=== PATIENT | male | born 1955 | race African-American/Black ===

== ENCOUNTER 2016-07-01 17:12 | Inpatient (IN) ==
[2016-07-01 18:05] LABS: MANUAL DIFF NEEDED? NO
--- NOTE | 2016-07-01 18:12 | Diag Imaging Result Document ---
PROCEDURE NAME: CHEST-PORTABLE - 07/01/2016 PORTABLE CHEST: There is a calcified node on the right. Considering differences in projection and inspiration, there has been no significant change from 02/09/2015. IMPRESSION: No evidence of acute disease.
[2016-07-01 18:13] LABS: BASO% 0.8 % (0.0-0.8); EOS# 0.06 X1000 (0.0-0.7); EOS% 1.6 % (0.0-10.0); HEMATOCRIT 33.1 % (42.0-52.0); HEMOGLOBIN 11.2 g/dL (14.0-18.0); IMM GRAN# 0.03 X1000 (0.0-0.04); IMM GRAN% 0.8 % (0.0-0.5); LYMPH# 1.12 X1000 (1.2-3.4); LYMPH% 30.7 % (20.5-51.1); MCH 30.3 PG (27-31); MCHC 33.8 g/dL (33-37); MCV 89.5 FL (81-99); MONO# 0.52 X1000 (0.11-0.59); MONO% 14.2 % (1.7-9.3); MPV 9.4 FL (7.4-10.4); NEUT% 51.9 % (42.2-75.2); PLT 223 X1000 (130-400)
[2016-07-01 18:19] LABS: INR 1.02; PROTIME 10.7 Seconds (9.2-11.7); PTT 26.1 Seconds (22.0-36.0)
[2016-07-01 18:31] LABS: AGAP 10; ALBUMIN 3.9 g/dL (3.5-5.0); ALKALINE PHOSPHATASE 72 U/L (32-122); BUN 13 mg/dL (8-22); CALCIUM 9.3 mg/dL (8.8-10.2); CHLORIDE 105 mmol/L (98-107); CK PROFILE 141 U/L (24-204); COSMO 284; GOT 16 U/L (10-34); GPT 10 U/L (10-44); POTASSIUM 4.2 mmol/L (3.5-5.1); SODIUM 143 mmol/L (136-145); TCO2 28 mmol/L (25-35); TOTAL BILIRUBIN 0.51 mg/dL (0.20-1.00); TOTAL PROTEIN 6.5 g/dL (6.3-8.3)
[2016-07-01 18:54] LABS: URINE MICRO REVIEW NEEDED? NO; URINE SOURCE CATH
[2016-07-01 19:09] LABS: BILIRUBIN URINE NEGATIVE (NEGATIVE); BLOOD URINE TRACE (NEGATIVE); COLOR YELLOW; GLUCOSE URINE NEGATIVE (NEGATIVE); LEUKOCYTES URINE MODERATE (NEGATIVE); NITRITE URINE NEGATIVE (NEGATIVE); PROTEIN URINE TRACE mg/dL (NEGATIVE); SP GRAVITY URINE 1.023; TURBIDITY URINE CLEAR (CLEAR); UROBILINOGEN URINE 4 mg/dL (NORMAL)
[2016-07-01 19:11] LABS: UR EPITHELIAL CELLS <10 /HPF (<10); URINE BACTERIA 4+ /HPF; URINE CULTURE NEEDED? YES; URINE WBC TNTC /HPF (<10)
[2016-07-01 19:20] LABS: UR AMPHETAMINES QUAL NONE DETECTED (NONE DETECT); UR BARBITUATES QUAL NONE DETECTED (NONE DETECT); UR BENZODIAZEPIN QUAL NONE DETECTED (NONE DETECT); UR CANNABINOIDS QUAL NONE DETECTED (NONE DETECT); UR COCAINE QUAL NONE DETECTED (NONE DETECT); UR METHADONE QUAL NONE DETECTED (NONE DETECT); UR OPIATES QUAL NONE DETECTED (NONE DETECT); UR OXYCODONE QUAL NONE DETECTED (NONE DETECT); UR PCP QUAL NONE DETECTED (NONE DETECT)
[2016-07-01] MEDS ORDERED: ROCEPHIN 1 GM/NS 1 GM/50 ML IVPB IV ONE (19:50)
--- NOTE | 2016-07-01 22:58 | HISTORY AND PHYSICAL ---
PRIMARY CARE PHYSICIAN: None. CHIEF COMPLAINT: Confusion. HISTORY OF PRESENTING ILLNESS: A 61-year-old male who resides at [facility], with a history of CVA, with right-sided residual weakness, hypertension, diabetes mellitus type 2, and dementia, was brought to the emergency department due to patient having more confusion than his baseline. The patient does have, as discussed, dementia, and apparently his confusion is more worse than usual. At the time of my examination, he was not oriented to person, time, or place, and not much history could be obtained from him. The remainder of the history is obtained from his previous records. However, patient was able to deny he had any headache, fever, chills, chest pain, shortness of breath, hemoptysis, or any weight changes. He states that he is not sure why he is at the hospital. PAST MEDICAL HISTORY: Includes CVA, hypertension, diabetes mellitus type 2, chronic anemia, depression, dementia, chronic kidney disease. PAST SURGICAL HISTORY: None. ALLERGIES: No known drug allergies. CURRENT MEDICATIONS: As listed in the MAR. SOCIAL HISTORY: A 20+ pack year history of smoking. He denies any history of alcohol or illicit drug use. FAMILY HISTORY: No history of coronary artery disease. REVIEW OF SYSTEMS: A 12-point review of systems is as in HPI. Other systems are negative. PHYSICAL EXAMINATION: GENERAL: Cooperative, friendly male. He is without any respiratory distress. VITAL SIGNS: Temperature 98.1 degrees, pulse 78, respirations 16, blood pressure 145/95. He is saturating 100%. HEENT: Atraumatic, normocephalic. Extraocular movements intact. PERRLA. NECK: Supple. CHEST: Clear to auscultation. CARDIOVASCULAR: Regular rate and rhythm. ABDOMEN: Soft, nontender. Positive bowel sounds. EXTREMITIES: No edema. NEUROLOGIC: Speech is intact. Strength is 5/5 in all extremities. GENITOURINARY: No bladder distention. SKIN: Warm. Good turgor. LABORATORIES AND STUDIES: UA shows moderate leukocytes and +4 bacteria. WBC 3.65, hemoglobin 11.2, hematocrit 33.1 platelets 223,000. Sodium 143, potassium 4.2, chloride 105, CO2 28, BUN is 13, creatinine is 1.0, glucose is 82. ASSESSMENT: This is a 61-year-old male with a history of cerebrovascular accident, hypertension, diabetes mellitus type 2, and dementia, who was brought to the emergency department due to worsening confusion. He was found to have a urinary tract infection. He will need hospitalization for further management. 1. Altered mental status, multifactorial. 2. Urinary tract infection. 3. Dementia. 4. Hypertension. 5. Diabetes mellitus, type 2. PLAN: 1. We will admit the patient to the medical floor with telemetry. 2. We will continue with neurologic checks. 3. Check urine cultures. Start patient on IV antibiotics. 4. Will monitor blood pressure, resume antihypertensive agent. 5. Will put patient on sliding scale insulin regimen and monitor blood glucose. 6. Will put patient on DVT prophylaxis with SCDs. 7. Will continue to follow and reassess. cc: Aayush Hernandez MD
[2016-07-02] MEDS: NS 1,000 ML IV SCH ×2 (00:10→16:33)
[2016-07-02] MEDS ORDERED: APRESOLINE PO ONE (01:23)
--- NOTE | 2016-07-02 04:19 | ED EKG INTERP ---
This chart was entered by Felipa Davis Scribe, acting as scribe for Jayson Antonio MD. EKG Interpretation - EKG Time of EKG reading by physician:: 21:29 EKG Read and Signed by:: Jayson Antonio EKG Interpretation (*Must complete 3 of following elements*): Abnormal Rate: 73 Rhythm: NSR ST Wave: non-specific ST changes Comments: prolonged QT This chart was documented by the indicated scribe, (Felipa Davis Scribe) and accurately reflects the services I performed and decisions made by me, Jayson Antonio MD, as attested by the provider's signature.
--- NOTE | 2016-07-02 04:20 | PROVIDER DOCUMENTATION ---
This chart was entered by Felipa Davis Scribe, acting as scribe for Jayson Antonio MD. HPI-Neurological Disorder - General Chief Complaint: Altered Mental Status Stated Complaint: ams Time Seen by Provider: 07/01/16 17:14 Source: patient Allergies/Adverse Reactions: Patient Allergies Allergy/AdvReac Type Severity Reaction Status Date / Time No Known Allergies Allergy Verified 02/10/16 12:36 Home Medications: Home Medication List Medication Instructions Recorded Confirmed Last Taken Type Tamsulosin [Flomax] 0.8 mg PO QHS #60 capsule 07/23/15 07/01/16 10/31/15 08:00 Rx Citalopram [Celexa] 20 mg PO DAILY 10/31/15 07/01/16 10/31/15 08:00 History Hydralazine [Apresoline] 50 mg PO Q8HR #60 tablet 01/08/16 07/01/16 Unknown Rx Amlodipine [Norvasc] 5 mg PO DAILY 02/10/16 07/01/16 Unknown History Collagenase Clostridium Oint 1 applicatn TOP DAILY #0 oint 02/19/16 07/01/16 Unknown Rx [Santyl Oint] - History of Present Illness-Neuro Nature of Presenting Problem: 61 year old M presents to the ED via EMS for being found unresponsive. Per EMS, [facility] staff found pt outside in his wheelchair unresponsive. On arrival to ED, PT was alert and able to follow simple commands. Severity: reports: mild Onset/Duration: reports: just prior to arrival Timing: reports: improving Context: reports: found unresponsive by [facility] staff Character of Altered Mental Status: reports: unresponsive Any recent trauma/injury?: reports: none Cognitive Baseline: alert, oriented x3 Similar Symptoms Previously?: No Recently seen or treated by another doctor?: No Review of Systems - Adult - REVIEW OF SYSTEMS - ADULT Constitutional: reports: no symptoms reported Eyes: reports: no symptoms reported Ears, Nose, Mouth & Throat: reports: no symptoms reported Cardiovascular: denies: chest pain, palpitations Respiratory: denies: cough, shortness of breath Gastrointestinal: denies: nausea, vomiting Genitourinary: reports: no symptoms reported Musculoskeletal: reports: no symptoms reported Integumentary: reports: no symptoms reported Neurological: denies: seizure, slurred speech Psychiatric: reports: no symptoms reported Endocrine: reports: no symptoms reported Hematologic/Lymphatic: reports: no symptoms reported Allergic/Immunologic: reports: no symptoms reported All Other Systems: Reviewed and Negative Past History - Adult - PAST MEDICAL HISTORY-ADULT Review of Records: reports: Nursing Assessment Review, Medications Reviewed Major Childhood Illnesses: reports: denies history Cardiovascular: reports: HTN Respiratory: reports: denies history Gastrointestinal: reports: denies history Obstetrical/Gynecological: reports: denies history Genitourinary: reports: denies history Musculoskeletal: reports: denies history Neurological: reports: denies history Endocrine/Immune: reports: anemia Other Conditions: reports: denies history - PRIOR SURGERIES/PROCEDURES Surgical/Procedure History: reports: orthopedic (extremity) (hip sx) - IMMUNIZATION STATUS Childhood Immunizations: See Nurse Assessment Flu Vaccine: See Nurse Assessment - FAMILY HISTORY Family History: reviewed, not pertinent - SOCIAL HISTORY Smoking: cigarettes Provider spent 3-5 mins advising pt. on dangers of tobacco.: Discussed manners to quit use, and f/u contacts for add'l counseling. 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 as tested, no motor/sensory deficits Integumentary: normal color, normal turgor, warm/dry Psych/Mental Status: oriented x 3 Progress - PLAN OF CARE/RESULTS Progress/Plan/Lab Results: Laboratory Results - last 24 hr 07/01/16 07/01/16 07/01/16 17:50 17:50 17:50 WBC 3.65 L RBC 3.70 L Hgb 11.2 L Hct 33.1 L MCV 89.5 MCH 30.3 MCHC 33.8 RDW Std Deviation 14.9 H Plt Count 223 MPV 9.4 Immature Gran % (Auto) 0.8 H Neut % (Auto) 51.9 Lymph % (Auto) 30.7 [place] % (Auto) 14.2 H Eos % (Auto) 1.6 Baso % (Auto) 0.8 Immature Gran # (Auto) 0.03 Neut # (Auto) 1.89 Lymph # (Auto) 1.12 L [place] # (Auto) 0.52 Eos # (Auto) 0.06 Baso # (Auto) 0.03 PT INR PTT (Actin FS) Sodium 143 Potassium 4.2 Chloride 105 Carbon Dioxide 28 Anion Gap 10 BUN 13 Creatinine 1.0 Estimated GFR/1.73 m2 > 60 BUN/Creatinine Ratio 13 Glucose 82 POC Glucose Calculated Osmolality 284 Calcium 9.3 Total Bilirubin 0.51 AST 16 ALT 10 Alkaline Phosphatase 72 Creatine Kinase 141 Troponin T Total Protein 6.5 Albumin 3.9 Globulin 2.6 Albumin/Globulin Ratio 1.5 Plasma Lactate Urine Source Urine Color Urine Turbidity Urine pH Ur Specific Willard Urine Protein Ur Glucose (Stick) Ur Ketones (Stick) Urine Blood Urine Nitrite Urine Bilirubin Urobilinogen Dipstick Urine Leukocytes Urine WBC (Auto) Urine RBC (Auto) U Epithel Cells (Auto) Urine Bacteria (Auto) Urine Opiates Screen Ur Oxycodone Screen Ur Methadone, Qual Ur Barbiturates Screen Ur Phencyclidine Scrn Ur Amphetamines Screen U Benzodiazepines Scrn Urine Cocaine Screen U Cannabinoids Screen Plasma/Serum Ethyl Alc 07/01/16 07/01/16 07/01/16 17:50 17:50 17:55 WBC RBC Hgb Hct MCV MCH MCHC RDW Std Deviation Plt Count MPV Immature Gran % (Auto) Neut % (Auto) Lymph % (Auto) [place] % (Auto) Eos % (Auto) Baso % (Auto) Immature Gran # (Auto) Neut # (Auto) Lymph # (Auto) [place] # (Auto) Eos # (Auto) Baso # (Auto) PT 10.7 INR 1.02 PTT (Actin FS) 26.1 Sodium Potassium Chloride Carbon Dioxide Anion Gap BUN Creatinine Estimated GFR/1.73 m2 BUN/Creatinine Ratio Glucose POC Glucose Calculated Osmolality Calcium Total Bilirubin AST ALT Alkaline Phosphatase Creatine Kinase Troponin T < 0.010 Total Protein Albumin Globulin Albumin/Globulin Ratio Plasma Lactate 1.3 Urine Source Urine Color Urine Turbidity Urine pH Ur Specific Willard Urine Protein Ur Glucose (Stick) Ur Ketones (Stick) Urine Blood Urine Nitrite Urine Bilirubin Urobilinogen Dipstick Urine Leukocytes Urine WBC (Auto) Urine RBC (Auto) U Epithel Cells (Auto) Urine Bacteria (Auto) Urine Opiates Screen Ur Oxycodone Screen Ur Methadone, Qual Ur Barbiturates Screen Ur Phencyclidine Scrn Ur Amphetamines Screen U Benzodiazepines Scrn Urine Cocaine Screen U Cannabinoids Screen Plasma/Serum Ethyl Alc 07/01/16 07/01/16 07/01/16 18:04 18:41 18:41 WBC RBC Hgb Hct MCV MCH MCHC RDW Std Deviation Plt Count MPV Immature Gran % (Auto) Neut % (Auto) Lymph % (Auto) [place] % (Auto) Eos % (Auto) Baso % (Auto) Immature Gran # (Auto) Neut # (Auto) Lymph # (Auto) [place] # (Auto) Eos # (Auto) Baso # (Auto) PT INR PTT (Actin FS) Sodium Potassium Chloride Carbon Dioxide Anion Gap BUN Creatinine Estimated GFR/1.73 m2 BUN/Creatinine Ratio Glucose POC Glucose 83 Calculated Osmolality Calcium Total Bilirubin AST ALT Alkaline Phosphatase Creatine Kinase Troponin T Total Protein Albumin Globulin Albumin/Globulin Ratio Plasma Lactate Urine Source CATH Urine Color YELLOW Urine Turbidity CLEAR Urine pH 7.0 Ur Specific Willard 1.023 Urine Protein TRACE A Ur Glucose (Stick) NEGATIVE Ur Ketones (Stick) NEGATIVE Urine Blood TRACE A Urine Nitrite NEGATIVE Urine Bilirubin NEGATIVE Urobilinogen Dipstick 4 A Urine Leukocytes MODERATE A Urine WBC (Auto) TNTC A Urine RBC (Auto) 10-20 A U Epithel Cells (Auto) <10 Urine Bacteria (Auto) 4+ Urine Opiates Screen NONE DETECTED Ur Oxycodone Screen NONE DETECTED Ur Methadone, Qual NONE DETECTED Ur Barbiturates Screen NONE DETECTED Ur Phencyclidine Scrn NONE DETECTED Ur Amphetamines Screen NONE DETECTED U Benzodiazepines Scrn NONE DETECTED Urine Cocaine Screen NONE DETECTED U Cannabinoids Screen NONE DETECTED Plasma/Serum Ethyl Alc Orders Category Date Time Status Admit - [facility] Routine AdmDCTranf 07/01/16 19:52 Ordered Activity - Strict Bedrest ORDERED Care 07/01/16 19:52 Completed Call Admitting on Arrival AT ADMISSION Care 07/01/16 19:54 Inactive Cardiac Monitoring DIRECTED Care 07/01/16 17:14 Completed Finger Stick Blood Sugar (ED) DIRECTED Care 07/01/16 17:14 Completed Saline Loc DIRECTED Care 07/01/16 19:52 Completed Saline Loc NOW Care 07/01/16 17:14 Completed Vital Signs Order ARRIVAL TO ROOM Care 07/01/16 19:52 Completed CHEST-PORTABLE [RAD] Stat Exams 07/01/16 17:14 Draft HEAD W/O CONTRAST [CT] Stat Exams 07/01/16 17:14 Taken ALCOHOL BLOOD Stat Lab 07/01/16 17:50 Completed CBC WITH ELECTRONIC DIFF [HEME] Stat Lab 07/01/16 17:50 Completed CK PROFILE [SP CHEM] Stat Lab 07/01/16 17:50 Completed COMPREHENSIVE METABOLIC PANEL [CHEM] Stat Lab 07/01/16 17:50 Completed LACTATE, PLASMA [CHEM] Stat Lab 07/01/16 17:55 Completed PROTIME WITH INR [COAG] Stat Lab 07/01/16 17:50 Completed PTT [COAG] Stat Lab 07/01/16 17:50 Completed TROPONIN T Stat Lab 07/01/16 17:50 Completed URINALYSIS W/POSS RFLX CULT-1 [URINALYSIS] Stat Lab 07/01/16 18:41 Completed URINE CULTURE [RM] Routine Lab 07/01/16 20:07 Received URINE DRUG SCREEN Stat Lab 07/01/16 18:41 Completed CefTRIAXONE 1 GM/NS [Rocephin 1 gm/Ns] Med 07/01/16 19:50 Discontinued 1 gm in 50 ml IV NOW Transfer/Admit Order [TRANSFER] Routine Transfer 07/01/16 19:54 Completed Result Diagrams: 07/01/16 17:50 07/01/16 17:50 - XRAY 1 XRAY Study: Chest Impression: Abnormal Comparison with other Films: no changes XRAY Interpretation: fluid right fissure otherwise normal: Dr. Antonio(ER MD) - CT/MRI 1 CT Study: Head Impression: Abnormal (extensive chronic microvascular changes and left sided encephalomalacia, no significant changes) Comparison with other Films: no changes - CONSULTS/PCP/HOSPITALIST Notification #1 *Consult/PCP/Hospitalist*: Dr. Hernandez Time Discussed: 19:55 Consult Disposition: Admit Departure - Departure Time of Disposition Decision: 19:50 DIAGNOSIS: Altered mental status, UTI (urinary tract infection) Disposition: ADMITTED INPATIENT 09 Certified Medical Emergency: Emergent Condition: Fair - Critical Care Note This patient required my direct personal management.: Yes This chart was documented by the indicated scribe, (Felipa Davis Scribe) and accurately reflects the services I performed and decisions made by me, Jayson Antonio MD, as attested by the provider's signature.
[2016-07-02 05:00] LABS: MANUAL DIFF NEEDED? NO
[2016-07-02] MEDS: APRESOLINE PO SCH ×3 (05:00→22:19)
[2016-07-02 05:03] LABS: BASO% 0.5 % (0.0-0.8); EOS# 0.07 X1000 (0.0-0.7); EOS% 1.7 % (0.0-10.0); HEMATOCRIT 34.9 % (42.0-52.0); MCH 30.7 PG (27-31); MCHC 34.4 g/dL (33-37); MCV 89.3 FL (81-99); MONO# 0.46 X1000 (0.11-0.59); MONO% 11.2 % (1.7-9.3); MPV 9.6 FL (7.4-10.4); NEUT% 52.6 % (42.2-75.2); PLT 223 X1000 (130-400); RBC 3.91 XMIL (4.7-6.1)
[2016-07-02 05:28] LABS: AGAP 12; BUN 11 mg/dL (8-22); CALCIUM 9.3 mg/dL (8.8-10.2); CHLORIDE 107 mmol/L (98-107); COSMO 287; SODIUM 145 mmol/L (136-145); TCO2 26 mmol/L (25-35)
--- NOTE | 2016-07-02 08:43 | Diag Imaging Result Document ---
PROCEDURE NAME: HEAD W/O CONTRAST - 07/01/2016 CT OF THE HEAD WITHOUT CONTRAST: COMPARISON: The current study is compared with that of 02/11/2016. FINDINGS: There is marked encephalomalacia present in the left hemisphere, including most of the basal ganglia region anteriorly as well as some of the anterior cortex of the parietal and posterior frontal lobes on the left. There is a lacune in the caudate nucleus on the right and multiple small lacunae are present in the thalami. There is extensive patchy lucency throughout the white matter of both hemispheres. Compared to the previous study of 02/11/2016, there has been no apparent change. There is no evidence of bleed, mass effect, or hydrocephalus. The visualized paranasal sinuses are clear. There may be some effusion in some of the mastoid air cells on the left. This has not changed appreciably since the previous study. IMPRESSION: Chronic changes as described. No evidence of acute intracranial disease.
[2016-07-02] MEDS: NORVASC PO SCH (09:06)
[2016-07-02] MEDS: CELEXA PO SCH (09:07)
[2016-07-02] MEDS: SANTYL OINT TOP SCH (10:31)
--- NOTE | 2016-07-02 16:05 | PROGRESS NOTE ---
DATE: 07/02/2016 SUBJECTIVE: Mr. Matthews was brought in yesterday. According to the ER note, he was found by the [facility] Staff outside in his wheelchair and was unresponsive. At the time he arrived at the ER, he was able to follow some simple commands. I am not quite sure of the details. The patient himself is not very rich in his expressions. OBJECTIVE: Vital signs: Blood pressure is 131/98, pulse of 76, respirations 22, temperature is 98 degrees. General: Mr. Matthews is a 61-year-old male. He was in bed. Not seemingly distressed. HEENT: Mucosa is pink and moist. Anicteric and acyanotic. Chest: Good air entry bilateral. No crepitations. No rhonchi. Cardiovascular: Regular rate and rhythm. Abdomen: Soft. Extremities: No pedal edema. 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 He is able to follow some basic commands, but he has remarkable memory impairment. The patient does not know when he was born and he does not know where he is. He is able to say his name, however. LABORATORY DATA: WBC is 4.12, hemoglobin is 12, platelet count is 223,000. Chemistry is reviewed. Completely normal. IMAGING: A CT scan of the head which was done on presentation shows chronic changes. No evidence of acute intracranial disease. There is a mild encephalomalacia present in the left hemisphere, including most of the basal ganglia anteriorly, as well as some of the anterior cortex of the parietal and posterior frontal lobes on the left. The urine is so far gram-negative tonie. ASSESSMENT: 1. Altered mental status. We think this is related to possible urinary tract infection. However, patient does have a remarkable encephalomalacia in the brain and the way he presented, it also sounds as if he could have seizure and he definitely has remarkable risk factors for that. The patient seems to have also come on other occasions for altered mental status or syncope, which I think probably was all related to the fact that he might have been having seizures that were not diagnosed. We will treat the current urinary tract infection, but we will start him on Keppra and do an electroencephalogram. 2. Gram-negative tonie urinary tract infection. The patient has been started on ceftriaxone. We will continue with that. 3. Failure to thrive. We will start the patient on multivitamins and thiamine. 4. Dementia. Etiology unclear. Likely multifactorial, including some vascular dementia as well as nutritional deficiencies causing dementia. 5. Hypertension. Controlled. 6. Diabetes. Controlled. cc: Jed Whitney MD
[2016-07-02] MEDS: FLOMAX PO SCH (22:18)
[2016-07-02] MEDS: KEPPRA PO SCH (22:18)
[2016-07-02] MEDS: ROCEPHIN 1 GM/NS 1 GM/50 ML IVPB IV SCH (22:18)
[2016-07-02] MEDS: CENTRUM SILVER PO SCH (22:19)
[2016-07-03] MEDS: APRESOLINE PO SCH ×3 (05:27→21:39)
[2016-07-03] MEDS: NS 1,000 ML IV SCH ×2 (05:28→09:20)
[2016-07-03] MEDS: VITAMIN B-1 PO SCH (09:16)
[2016-07-03] MEDS: CENTRUM SILVER PO SCH ×2 (09:16→21:38)
[2016-07-03] MEDS: NORVASC PO SCH (09:16)
[2016-07-03] MEDS: CELEXA PO SCH (09:16)
[2016-07-03] MEDS: KEPPRA PO SCH ×2 (09:16→21:39)
--- NOTE | 2016-07-03 15:10 | PROGRESS NOTE ---
DATE: 07/03/2016 SUBJECTIVE: This morning, Mr. Matthews referred to be doing fine. He was completely awake. Denies any acute problem. Patient was actually about to start getting his EEG at the time I saw him. OBJECTIVELY: Vital signs: His other blood pressure is 133/86, pulse of 85, respirations 16, temperature 97.7 degrees. General: Mr. Matthews is a 61-year-old male. He was in bed. Not in any distress. HEENT: Mucosa is pink and moist. Anicteric. Acyanotic. Neck: Supple. Chest: Clear. Cardiovascular: Regular rate and rhythm. Abdomen: Soft. Extremities: No pedal edema. 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 Oriented only to person, but disoriented to time and to place. The patient will move extremities equally. LABORATORY DATA: None for today. ASSESSMENT: 1. Altered mental status at the longterm due to toxic metabolic encephalopathy. 2. Klebsiella pneumonia urinary tract infection. Patient is on ceftriaxone. We will continue this for another day. 3. Failure to thrive. 4. Dementia, etiology unclear. Patient does have encephalomalacia in the brain likely from previous vascular event. Also has multiple nutritional deficiencies so I think this could potentially be additive to the etiology for his dementia. 5. Hypertension. Controlled. 6. Diabetes. Controlled. 7. Failure to thrive. 8. Suspected seizures. The patient is currently on levothyroxine. We will be waiting for the report on the electroencephalogram and hopefully get him discharged tomorrow. cc: Jed Whitney MD
[2016-07-03] MEDS: FLOMAX PO SCH (21:39)
[2016-07-03] MEDS: ROCEPHIN 1 GM/NS 1 GM/50 ML IVPB IV SCH (21:39)
--- NOTE | 2016-07-03 22:18 | EEG REPORT ---
DATE: 07/02/2016 EEG #[id number] COMMENT: This is a digitally recorded EEG on a 61-year-old patient with reported altered mental state, question of seizure. FINDINGS: During waking, low amplitude polymorphic theta is prominent across both hemispheres. No sustained posterior dominant rhythm is identified. There is some muscle contraction artifact throughout the record which does not hinder interpretation. There was no variation to correlate with spontaneous drowsing or sleep. There is some slowing into the delta range frontally. No definite epileptiform discharge was identified. INTERPRETATION: Abnormal EEG because of generalized slowing. CORRELATION: This is indicative of diffuse encephalopathy and is nonspecific. The absence of epileptiform discharges on a single EEG does not exclude a clinical diagnosis of seizures. cc: MD Jed Pace III, MD
[2016-07-04] MEDS: NS 1,000 ML IV SCH (01:26)
[2016-07-04] MEDS: APRESOLINE PO SCH ×2 (05:34→14:25)
[2016-07-04 07:07] LABS: MANUAL DIFF NEEDED? NO
[2016-07-04 07:17] LABS: BASO% 0.6 % (0.0-0.8); EOS# 0.08 X1000 (0.0-0.7); EOS% 2.5 % (0.0-10.0); HEMATOCRIT 32.6 % (42.0-52.0); HEMOGLOBIN 11.1 g/dL (14.0-18.0); LYMPH# 1.26 X1000 (1.2-3.4); LYMPH% 38.9 % (20.5-51.1); MCH 30.2 PG (27-31); MCV 88.6 FL (81-99); MONO# 0.35 X1000 (0.11-0.59); MONO% 10.8 % (1.7-9.3); MPV 9.6 FL (7.4-10.4); NEUT% 47.2 % (42.2-75.2); PLT 208 X1000 (130-400); RBC 3.68 XMIL (4.7-6.1)
[2016-07-04 07:40] LABS: AGAP 12; BUN 17 mg/dL (8-22); CHLORIDE 107 mmol/L (98-107); COSMO 286; SODIUM 143 mmol/L (136-145); TCO2 24 mmol/L (25-35)
[2016-07-04] MEDS ORDERED: CORTROSYN IV ONE (09:50)
[2016-07-04] MEDS: VITAMIN D PO SCH ×2 (09:59→10:06)
[2016-07-04] MEDS: SANTYL OINT TOP SCH ×2 (09:59→10:07)
[2016-07-04] MEDS ORDERED: CORTEF PO SCH (10:00)
[2016-07-04] MEDS ORDERED: SODIUM CHLORIDE 0.9% MISC ONE (10:00)
[2016-07-04] MEDS: VITAMIN B-1 PO SCH (10:06)
[2016-07-04] MEDS: CENTRUM SILVER PO SCH (10:06)
[2016-07-04] MEDS: NORVASC PO SCH (10:06)
[2016-07-04] MEDS: KEPPRA PO SCH (10:06)
[2016-07-04] MEDS: CELEXA PO SCH (10:06)
[2016-07-04 15:47] VITALS: BP 150/92
--- NOTE | 2016-07-04 15:49 | DISCHARGE SUMMARY ---
ADMISSION DATE: 07/01/2016 DISCHARGE DATE: 07/04/2016 CONSULTATIONS: None. PERTINENT PROCEDURES: 1. EEG: Was indicative of induced encephalopathy and is nonspecific. 2. Head CT showed chronic changes. No evidence of acute intracranial disease. DISCHARGE DIAGNOSES: 1. Showed altered mental status at the intermediate due to toxic metabolic encephalopathy, improved. 2. Klebsiella pneumoniae urinary tract infection. The patient back to intermediate on Keflex. 3. Dementia of unclear etiology. The patient does have encephalomalacia in the brain likely from previous vascular event. Also multiple nutritional deficiencies that could potentially be additive to the etiology for his dementia. 4. Hypertension controlled. 5. Diabetes, controlled. 6. Failure to thrive. 7. Suspected seizures. The patient underwent an EEG. Will continue on Keppra. HOSPITAL COURSE: Mr. Matthews is a 61-year-old male who is a resident of [facility]. He has a past medical history of CVA, right-sided residual weakness, hypertension, diabetes mellitus type 2, dementia. Was brought to the ED due to patient having some increased confusion from his baseline. The patient underwent a head CT that did not show anything acute. He also had a UTI. Was started on IV antibiotics as well as neuro checks. The patient's EEG was indicative of a diffuse encephalopathy and was nonspecific. Alford his altered mental status was secondary from his UTI and his multiple nutritional deficiencies. Was also suggested that maybe the patient was having seizures that were not diagnosed. He was started on Keppra. Mr. Matthews now refers to doing fine. He is completely awake. Denies any type of problems. He is appropriate for discharge back to the intermediate today. VITAL SIGNS: Temperature is 97.8, heart rate 72, respirations 16, blood pressure 143/91, O2 is 98% on room air. DISCHARGE DIET: Diabetic. DISCHARGE MEDICATIONS: 1. Norvasc 5 mg p.o. daily. 2. Keflex 500 mg p.o. q.12 hours. 3. Vitamin D3 1000 units p.o. daily. 4. Celexa 20 mg p.o. daily. 5. Collagenase clostridium ointment, 1 application topical to right eye daily. 6. Cortef 10 mg p.o. daily. 7. Keppra 500 mg p.o. b.i.d. 8. Centrum 1 each p.o. b.i.d. 9. Flomax 0.8 p.o. at bedtime. 10. Vitamin B1 at 100 mg p.o. daily. FOLLOWUP: Patient is being discharged back to the intermediate. He will need to continue all his antibiotics as well as continue with his Keppra. The patient can return to the ED for any worsening of symptoms. DISCHARGE TIME: 30 minutes. Dictated by NADEEM Jordan for Jed Whitney MD cc: Jed Whitney MD
[2016-07-04] MEDS ORDERED: KEFLEX PO SCH (21:00)
[2016-07-05] MEDS ORDERED: CORTEF PO SCH (09:00)
== END 2016-07-04 17:43 ==
LOC: ED 17:12 → SUATTDRO 20:59 → EDIPHOLD 20:59 → 3N 07-02 15:48
PROVIDERS: ATTEND Internal Medicine